=== PATIENT | female | born 1955 | race African-American/Black ===

== ENCOUNTER → 2017-06-30 | Outpatient (CLI) | payer OTHER ==
--- NOTE | ~2017-06-30 | MY29 ---
[facility] A Service of [facility] RADIOLOGY TEXT RESULTS PATIENT: CHELI LOPEZ LOCATION: [facility] : 55 UNIT #: [id number] AGE: [address]: MARCELA COLON MD SEX: F ORDER DR: [id number] [facility]. [place], [place] [address] [id number] O MR#: [id number] Acc #: [id number] NAME: CHELI LOPEZ : 1955 SEX: F STUDY DATE/TIME: 06/30/2017 10:49 UNIT: [facility] ROOM: STUDY DESCRIPTION: [facility] SCREENING W/ CAD BILAT Attending Physician: Marcela Colon M.D. Ordering Physician: Marcela Colon M.D. Primary Care Physician: Marcela Colon M.D. MEDICAL IMAGING REPORT This report is preliminary unless electronic signature is present EXAM Digital screening mammogram 06/30/2017 HISTORY 62-year-old woman positive family history, aunt. Annual screen. COMPARISON Mammograms 01/03/2014 [facility] FINDINGS Digital imaging of each breast was completed utilizing a two-view examination of each breast in craniocaudal and mediolateral-oblique projections. Review and interpretation of digital mammograms include a second review in conjunction with FDA-approved CAD device. There is a normal parenchymal presentation bilaterally consistent with the patient's age. There are no breast masses imaged and no parenchymal asymmetry is visualized. There are no suspicious microcalcifications and I see no focal architectural disturbance. IMPRESSION Negative screening digital mammogram. One-year followup recommended. Patients over the age of 40 are entered into a reminder system with target due date for the next mammogram. A result letter will also be sent to the patient. BIRADS: 1 Negative Dictated by... Kyle Ching M.D. [facility] A Service of [facility] RADIOLOGY TEXT RESULTS PATIENT: CHELI LOPEZ LOCATION: [facility] : 55 UNIT #: [id number] AGE: [address]: MARCELA COLON MD SEX: F ORDER DR: THIS IS AN ELECTRONICALLY VERIFIED REPORT Kyle Ching M.D. at 07/02/2017 8:14 AM HOWARD/juancarlos TD: 07/01/2017 18:37 JOB #: [id number] MEDICAL IMAGING REPORT Page 1 of 1 COPY
== END | disposition home or self-care (01) ==
LOC: CWCC 10:26
DX: Z12.31 Encounter for screening mammogram for malignant neoplasm of breast (principal); Z80.3 Family history of malignant neoplasm of breast
CPT/HCPCS: G0202